=== PATIENT | female | born 1960 | race Caucasian/White ===

== ENCOUNTER → 2023-07-27 | Outpatient (CLI) | payer BC ==
[~2023-07-27] MED LIST: DIAZ10 PO; HORMONE PATCH; OXYACE5T PO; PRED20 PO; VICOPROFEN PO; ZANAFLEX PO
== END ==
LOC: LAB SHORT 11:23 → LAB 11:23
DX: D04.39 Carcinoma in situ of skin of other parts of face (principal)
CPT/HCPCS: 88305